=== PATIENT | male | born 1950 | race Caucasian/White ===

== ENCOUNTER 2017-09-12 20:02 | Emergency (ER) | payer MEDICARE ==
[~2017-09-12] VITALS: Ht 182.9 cm; Wt 97.5 kg
[~2017-09-12 20:02] MED LIST: HC2.5C30 TOP
[2017-09-12] MEDS ORDERED: RAMI2.5C (20:38)
--- NOTE | 2017-09-12 21:31 | ED GI ---
General Chief Complaint: Abdominal/GI Problems Stated Complaint: CONSTIPATION Nursing Triage Note: CONSTIPATION, LAST BM 09/09/17 Sepsis Screen: No Definite Risk Source of Information: Patient Exam Limitations: No Limitations History of Present Illness Date Seen by Provider: Sep 12, 2017 Time Seen by Provider: 21:31 Initial Comments 67-year-old male patient presents to the emergency department with complaints of constipation. States he used a [employer] brand suppository today without relief. Tried pushing to have a BM x4 hours today. Now has hemorrhoid pain/ bleeding. Patient reports having a bowel movement every other day. States he had a bowel movement for 3 days. Denies abdominal pain, abdominal swelling, fever, N/V/D. Timing/Duration: Getting Worse, Other (last BM 09/09/17) Severity/Quality: Moderate Location: Other (rectal pain/pressure) Radiation: No Radiation Modifying Factors: Worsens With Defecating (worse with attempting to defecate.) Allergies and Home Medications Allergies Coded Allergies: No Known Drug Allergies (Unverified , 09/02/11) Home Medications Hydrocortisone/Pramoxine 30 Gm Cream.appl, 30 GM RC UD apply to the hemorrhoids QID [id number] for swelling and pain. dose as needed. Prescribed by: JAZMYN GARCIA on 09/12/172223 Lidocaine 15 Gm Cream..g., 15 GM TP UD PRN for pain apply to the anus/hemorrhoids QID prn pain. Prescribed by: JAZMYN GARCIA on 09/12/172225 Polyethylene Glycol 3350 119 Gm Powder, 17 GM PO UD PRN for con 17 grams mixed with 8 oz of fluids po BID x3days, then qHS prn constipation. Prescribed by: JAZMYN GARCIA on 09/12/172201 Patient Home Medication List Home Medication List Reviewed: Yes Review of Systems Constitutional: No chills, No fever, No malaise Respiratory: No Symptoms Reported Cardiovascular: No Symptoms Reported Gastrointestinal: See HPI, Denies Abdomen Distended, Denies Abdominal Pain, Constipated, Denies Diarrhea, Denies Nausea, Denies Poor Appetite, Denies Poor Fluid Intake, Rectal Bleeding, Denies Vomiting Genitourinary: Denies Burning, Denies Frequency, Denies Flank Pain, Denies Hematuria, Denies Pain Musculoskeletal: no symptoms reported Skin: no symptoms reported Psychiatric/Neurological: No Symptoms Reported All Other Systems Reviewed Negative Unless Noted: Yes (Negative excepted noted.) Past Fzbluwa-Vyvbtu-Opdvjt Hx Patient Social History Alcohol Use: Denies Use Recreational Drug Use: No Smoking Status: Never a Smoker 2nd Hand Smoke Exposure: No Recent Foreign Travel: No Contact w/Someone Who Travel: No Recent Infectious Disease Expo: No Recent Hopitalizations: No Immunizations Up To Date Date of Influenza Vaccine: Mar 23, 2011 Seasonal Allergies Seasonal Allergies: No Surgeries History of Surgeries: No Respiratory History of Respiratory Disorde: No Cardiovascular History of Cardiac Disorders: Yes Cardiac Disorders: Hypertension Neurological History of Neurological Disord: No Genitourinary History of Genitourinary Disor: No Gastrointestinal History of Gastrointestinal Di: Yes Gastrointestinal Disorders: Chronic Constipation, Hemorrhoids Musculoskeletal History of Musculoskeletal Dis: No Endocrine History of Endocrine Disorders: No HEENT History of HEENT Disorders: No Cancer History of Cancer: No Psychosocial History of Psychiatric Problem: No Integumentary History of Skin or Integumenta: No Blood Transfusions History of Blood Disorders: No Reviewed Nursing Assessment Reviewed/Agree w Nursing PMH: Yes Family Medical History Significant Family History: No Pertinent Family Hx Physical Exam Vital Signs VS - Last 72 Hours, by Label 09/12/17 20:39 Temp 97.7 Pulse 106 Resp 18 B/P (MAP) 154/105 (121) Pulse Ox 97 O2 Delivery Room Air Capillary Refill : Less Than 3 Seconds General Appearance: WD/WN, no apparent distress HEENT: PERRL/EOMI, pharynx normal Neck: supple, normal inspection Respiratory: lungs clear, normal breath sounds, no respiratory distress, no accessory muscle use Cardiovascular: normal peripheral pulses, regular rate, rhythm, no edema, no murmur Peripheral Pulses: 2+ Dorsalis Pedis (R), 2+ Left Dors-Pedis (L), 2+ Radial Pulses (R), 2+ Radial Pulses (L) Gastrointestinal: normal bowel sounds, non tender, soft, no organomegaly, no pulsatile mass, No distended Rectal: normal rectal tone, heme positive stool, hemorrhoids (large circumfrential hemorrhoids without active bleeding.), tenderness, other (stool noted at examiner's finger tip.) Extremities: no pedal edema, no calf tenderness, normal capillary refill Back: normal inspection, no CVA tenderness Neurologic/Psychiatric: alert, normal mood/affect, oriented x 3 Skin: normal color, warm/dry Progress/Results/Core Measures Results/Orders My Orders Orders - JAZMYN GARCIA Lidocaine 2% (Urojet) (Xylocaine Urojet) (09/12/17 22:00) Bisacodyl Suppository (Dulcolax Supposit (09/12/17 22:00) Magnesium Citrate Oral Soln (Citrate Of (09/12/17 22:00) Medications Given in ED Current Medications Medications Dose Ordered Sig/Slime Route Start Time Stop Time Status Last Admin Dose Admin Bisacodyl 20 mg ONCE ONCE DC 09/12/17 22:00 09/12/17 22:01 DC 09/12/17 22:02 20 MG Lidocaine HCl 10 ml ONCE ONCE TOP 09/12/17 22:00 09/12/17 22:01 DC 09/12/17 22:02 10 ML Magnesium Citrate 300 ml ONCE ONCE PO 09/12/17 22:00 09/12/17 22:01 DC 09/12/17 22:02 300 ML Vital Signs/I&O Vital Sign - Last 12Hours 09/12/17 20:39 Temp 97.7 Pulse 106 Resp 18 B/P (MAP) 154/105 (121) Pulse Ox 97 O2 Delivery Room Air Blood Pressure Mean: 121 Departure Communication (Admissions) Progress Notes patient seen and evaluated. patient refusing xray of the abdomen. states he is constipated and does not need an xray. risks, benefits, and possible complications associated with not performing the abd xray were discussed with patient. patient verbalizes understanding and agrees with the treatment plan. dr. tracy notified of patient's refusal to do the xray. Impression Impression: Primary Impression: Constipation Qualified Codes: K59.00 - Constipation, unspecified Additional Impression: Hemorrhoids, external Disposition: HOME, SELF-CARE Condition: Improved Departure-Patient Inst. Decision time for Depature: 22:18 Referrals: PHAN AGEE BRETT D DO JENKINS, XAVIER M MD KIDO, TAKAAKI MD NO,LOCAL PHYSICIAN (PCP) Primary Care Physician SERGIO JANSEN MD Patient Instructions: Constipation, Adult (DC) Add. Discharge Instructions: All discharge instructions reviewed with patient and/or family. Voiced understanding. -Medications as instructed. -Colace stool softener [id number] 100 mg by mouth 2-3 times daily for constipation. -MiraLAX 17 g mixed with 8 ounces of fluids by mouth twice daily for 3 days, then 17 g at bedtime as needed for constipation. -High-fiber diet or use [id number] fiber supplements. -drink at least 64 oz of fluids per day. -dulcolax 10 mg by mouth over the counter daily as needed for constipation. -Magnesium citrate as directed for severe constipation. -Follow-up with your family practitioner for recheck as outpatient. -Follow-up with the general surgeon of your choice for recheck as an outpatient and for possible need of a colonoscopy and a small hemorrhoid banding versus hemorrhoidectomy. Call for appointment time. -Return to the emergency department for worsened pain, bleeding with abdominal pain, swelling, fever, vomiting, or any other concerns. Scripts Lidocaine (Recticare) 15 Gm Cream..g. 15 GM TP UD Y for pain, #1 TUBE 0 Refills apply to the anus/hemorrhoids QID prn pain. Prov: JAZMYN GARCIA 09/12/17 Hydrocortisone/Pramoxine (Analpram Hc 2.5% Cream) 30 Gm Cream.appl 30 GM RC UD, #1 APPLIC 0 Refills apply to the hemorrhoids QID [id number] for swelling and pain. dose as needed. Prov: JAZMYN GARCIA 09/12/17 Polyethylene Glycol 3350 (Miralax) 119 Gm Powder 17 GM PO UD Y for con, #1 EA 0 Refills 17 grams mixed with 8 oz of fluids po BID x3days, then qHS prn constipation. Prov: JAZMYN GARCIA 09/12/17 Work/School Note: Local [employer] JAZMYN GARCIA Sep 12, 2017 21:31
[2017-09-12] MEDS ORDERED: LIDOCAINE UROJET 2% GEL 10 ML PKG TOP ONE (22:00)
[2017-09-12] MEDS ORDERED: MAGNESIUM CITRATE 300 ML BTL PO ONE (22:00)
[2017-09-12] MEDS ORDERED: BISACODYL 10 MG SUPP (DULCOLAX) PR ONE (22:00)
[2017-09-12] MEDS ORDERED: POLY119P5 PO (22:02)
[2017-09-12] MEDS ORDERED: HC A30CR RC (22:24)
[2017-09-12] MEDS ORDERED: LIDO15CR6 TP (22:26)
[2017-09-12 22:35] VITALS: BP 145/98
== END 2017-09-12 22:33 | disposition home or self-care (01) ==
LOC: EDUNIT# 20:02 → ER 20:03
DX: K59.00 Constipation, unspecified (principal); K64.4 Residual hemorrhoidal skin tags; I10 Essential (primary) hypertension
CPT/HCPCS: 99282